=== PATIENT | female | born 1945 | race Caucasian/White ===

== ENCOUNTER 2019-07-13 10:36 | Outpatient (CLI) | payer MEDICARE ==
--- NOTE | 2019-07-13 12:58 | ULT ---
VENOUS DOPPLER ULTRASOUND OF THE LEFT LOWER EXTREMITY: HISTORY: Left lower extremity edema. TECHNIQUE: Gomez scale ultrasound with color flow and spectral Doppler imaging of the deep venous system of the l eft lower extremity was performed. FINDINGS: There is good flow, compression, and augmentation noted in the left common femoral, femoral, deep fem oral, popliteal, posterior tibial, peroneal, and greater saphenous veins. IMPRESSION: No evidence of deep vein thrombosis in the left lower extremity. POS: [facility]
== END 2019-07-13 10:37 | disposition home or self-care (01) ==
LOC: SCSULT 10:36
PROVIDERS: ATTEND Family Medicine
DX: R60.0 Localized edema (principal)

== ENCOUNTER 2022-08-17 08:41 | Outpatient (CLI) | payer MEDICARE ==
[2022-08-17 10:28] LABS: Hemoglobin 11.4 g/dL (12.0-15.5); Mean Corpuscular HGB CONC 32.7 g/dL (32.0-36.0); Mean Corpuscular Hemoglobin 30.2 pg (27.0-33.0); Mean Corpuscular Volume 92.6 fl (81.6-98.3); Mean Platelet Volume 10.5 fl (7.4-10.4); Platelet Count 140 10x3/uL (150-450); RBC Distribution Width 15.3 % (11.5-14.5); Red Blood Cell (RBC) Count 3.77 10x6/uL (3.90-5.03); White Blood Cell (WBC) Count 8.7 10x3/uL (3.5-10.5)
[2022-08-17 10:48] LABS: MDiff Complete? YES
[2022-08-17 10:49] LABS: Prothrombin Time 10.6 sec (9.5-12.1)
[2022-08-17 10:50] LABS: Anion Gap 13 mmol/L (10-20); BUN (Urea Nitrogen) 15 mg/dL (9.8-20.1); Calc. Creatinine Clearance 0 mL/min (70-130); Calcium 9.6 mg/dL (7.8-10.44); Carbon Dioxide 29 mmol/L (23-31); Chloride 103 mmol/L (98-107); Estimated GFR 79; Glucose 114 mg/dL (83-110); Sodium 141 mmol/L (136-145)
[2022-08-17 10:51] LABS: Lymphocytes 51 % (21-51); Monocytes 5 % (0-10); Neutrophil 44 % (42-75)
[2022-08-17 10:53] LABS: Platelet Adequacy Comment Appears Adequate; RBC Morph Comment Within Normal Limits
[2022-08-17 10:54] LABS: Smudge Cells SLIGHT
[2022-08-17 11:14] LABS: Bilirubin Neg (Negative); Blood, Urine Negative (Negative); Clarity Clear (Clear); Glucose, Urine (Dipstick) Normal (Negative); Ketone, Urine Negative (Negative); Leukocyte Negative (Negative); Nitrite Negative (Negative); Protein, Urine (Dipstick) Negative (Neg-Trace); Urobilinogen Normal mg/dL (Less than 2)
== END 2022-08-17 08:42 | disposition home or self-care (01) ==
LOC: LABBT 08:41
PROVIDERS: ATTEND Orthopaedic Surgery
DX: Z01.818 Encounter for other preprocedural examination (principal); M17.0 Bilateral primary osteoarthritis of knee
CPT/HCPCS: 71046; 80048; 81003; 85025; 85610; 86850; 86870; 86900; 86901; 87081